=== PATIENT | male | born 1995 | race Caucasian/White ===

== ENCOUNTER 2016-12-04 05:23 | Day surgery (SDC) | payer OTHER ==
[~2016-12-04] VITALS: Ht 167.6 cm; Wt 54.4 kg
[~2016-12-04 05:23] MED LIST: INSULIN PUMP SCCONT
[2016-12-04 06:09] VITALS: BP 151/95
[2016-12-04 07:19] LABS: CHLORIDE 93 mEq/L (99-109); POTASSIUM 2.8 mEq/L (3.7-5.4); SODIUM 137 mEq/L (136-147)
[2016-12-04 07:20] LABS: GLUCOSE 43 mg/dL (70-99)
[2016-12-04 07:22] LABS: ANION GAP 22 MEQ/L (2-14)
[2016-12-04 07:24] LABS: GFR ESTIMATE (CALCULATED) > 59 mL/min/
[2016-12-04 07:25] LABS: UREA NITROGEN (BUN) 34 mg/dL (9-23)
[2016-12-04 07:33] LABS: POINT-OF-CARE METER ID UU14174212
[2016-12-04 08:14] LABS: ADD MEDTOX COMMENT Y; AMPHETAMINE NEGATIVE (500 ng/mL); BARBITURATES NEGATIVE (200 ng/mL); BENZODIAZEPINES PRESUMPTIVE POSITIVE (150 ng/mL); COCAINE NEGATIVE (150 ng/mL); INTERNAL CONTROLS VALID? YES; METHADONE NEGATIVE (200 ng/mL); METHAMPHETAMINE NEGATIVE (500 ng/mL); OPIATES (MORPHINE) NEGATIVE (100 ng/mL); OXYCODONE NEGATIVE (100 ng/mL); PHENCYCLIDINE NEGATIVE (25 ng/mL); PROPOXYPHENE NEGATIVE (300 ng/mL); THC CANNABINOIDS NEGATIVE (50 ng/mL); TRICYCLIC ANTIDEPRESSANTS NEGATIVE (300 ng/mL)
[2016-12-04 08:40] LABS: BENZODIAZEPINES, URINE SCREEN POSITIVE (200 ng/mL)
[2016-12-04 08:48] LABS: POINT-OF-CARE METER ID UU13113675
[2016-12-04 09:13] LABS: POINT-OF-CARE METER ID UU14174212
[2016-12-04 09:13] LABS: POINT-OF-CARE METER ID UU14174212
[2016-12-04 10:00] VITALS: BP 120/67
[2016-12-04 10:35] VITALS: BP 121/69
== END 2016-12-04 10:40 | disposition home or self-care (01) ==
LOC: SDC 05:23
PROVIDERS: Ophthalmology
DX: H43.12 Vitreous hemorrhage, left eye (principal); I10 Essential (primary) hypertension; E10.9 Type 1 diabetes mellitus without complications; Z79.4 Long term (current) use of insulin; Z96.41 Presence of insulin pump (external) (internal)
CPT/HCPCS: 80048; 80306 90; 82948; 84999; 93005; J0690; J1100; J1170; J2795; J3010; J3300